=== PATIENT | male | born 1945 | race Caucasian/White ===

== ENCOUNTER → 2016-10-29 | Outpatient (CLI) | payer OTHER, MEDICARE | LOC: FIMAGING 12:28 | PROVIDERS: ATTEND Family Medicine | DX: M51.36 Other intervertebral disc degeneration, lumbar region (principal); M48.06 Spinal stenosis, lumbar region; M99.73 Connective tissue and disc stenosis of intervertebral foramina of lumbar region; M12.88 Other specific arthropathies, not elsewhere classified, other specified site; M71.38 Other bursal cyst, other site; N28.9 Disorder of kidney and ureter, unspecified ==

== ENCOUNTER → 2016-10-30 | Outpatient (CLI) | payer OTHER, MEDICARE | LOC: FIMAGING 08:21 | PROVIDERS: ATTEND Family Medicine | DX: Z13.820 Encounter for screening for osteoporosis (principal); E21.0 Primary hyperparathyroidism ==